=== PATIENT | male | born 1980 | race Caucasian/White ===

== ENCOUNTER 2018-03-13 00:39 | Emergency (ER) | payer SELFPAY ==
[~2018-03-13] VITALS: Ht 185.4 cm; Wt 83.9 kg
[2018-03-13 00:39] VITALS: BP 148/94
[2018-03-13 01:26] VITALS: BP 119/81
== END 2018-03-13 01:26 ==
LOC: MED 00:39
DX: Z02.89 Encounter for other administrative examinations (principal)
CPT/HCPCS: 99283